=== PATIENT | female | born 1945 | race Caucasian/White ===

== ENCOUNTER 2017-08-29 17:00 | Observation (INO) | payer MEDICARE ==
[~2017-08-29] VITALS: Ht 165.1 cm; Wt 66.1 kg
[2017-08-29 17:21] VITALS: BP 103/53; PULSE 107; RESP 16; TEMP 99.1; O2SAT 97
[2017-08-29] MEDS ORDERED: CHEMOTHERAPY (18:13)
[2017-08-29] MEDS ORDERED: LOSA25TA PO (18:13)
[2017-08-29] MEDS ORDERED: LORA1TAB12 PO (18:13)
[2017-08-29] MEDS ORDERED: CARV3.12 PO (18:13)
--- NOTE | 2017-08-29 19:02 | PD ---
HPI Chief Complaint: GI Complaint Time Seen by Provider: 18:53 Travel History International Travel<30 days: No Contact w/Intl Traveler<30days: No Traveled to known affect area: No History of Present Illness HPI Is a 72-year-old woman who presents to the emergency room complaining of constipation. She is a history of metastatic breast cancer with recurrence and pulmonary metastasis. She is on chemotherapy. She was recently switched after a imaging studies show progression. She states that cancer is confined to the lungs with no evidence of head bone or back metastasis. She states 6 days ago they switched her chemotherapy and she's been having worsening constipation since that time. She's not had a bowel movement in the past several days. She feels an urge to have a bowel movement and has abdominal cramping. No vomiting. She also has some pain in both her feet has pain walking. She states she otherwise has been feeling okay. No other complaints. 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 SKIN: Focused skin assessment warm/dry. HEAD: Atraumatic. Normocephalic. CARDIOVASCULAR: Regular rate and rhythm. No murmur appreciated. RESPIRATORY: No accessory muscle use. Clear to auscultation. Breath sounds equal bilaterally. GASTROINTESTINAL: Abdomen is flat and soft. Moderate left-sided tenderness. No rebound or guarding. Rectal exam unremarkable with no evidence of fecal impaction on exam. MUSCULOSKELETAL: No obvious deformities. No clubbing. No cyanosis. No edema. NEUROLOGICAL: Awake and alert. No obvious cranial nerve deficits. Motor grossly within normal limits. Strength is full and equal bilateral lower extremity is. Sensation intact to light touch. Reflexes diminished a bilaterally in the patella. Downgoing Babinski. No clonus. Rectal tone normal. Normal speech. PSYCHIATRIC: Appropriate mood and affect; insight and judgment normal. Data Data Last Documented VS Vital Signs Date Time Temp Pulse Resp B/P (MAP) Pulse Ox O2 Delivery O2 Flow Rate FiO2 08/29/17 17:21 99.1 107 16 103/53 (70) 97 Orders Orders Complete Blood Count With Diff (08/29/17 18:53) Abdomen, Flat & Upright (08/29/17 ) Magnesium Citrate Liq (Citroma Liq) (08/29/17 20:15) Glycerin Adult Supp (Glycerin Adult Supp (08/29/17 20:15) Ondansetron Inj (Zofran Inj) (08/29/17 21:00) Ct Abd/Pel W/O Iv Contrast (08/29/17 ) Basic Metabolic Panel (Bmp) (08/29/17 22:22) Sodium Chlorid 0.9% 500 Ml Inj (Ns 500 M (08/29/17 22:30) Ondansetron Inj (Zofran Inj) (08/29/17 22:30) Morphine Inj (Morphine Inj) (08/29/17 23:30) Admit Order (Ed Use Only) (08/29/17 ) Labs Laboratory Tests Test 08/29/17 19:46 08/29/17 22:43 White Blood Count 2.0 TH/MM3 Red Blood Count 5.11 MIL/MM3 Hemoglobin 14.4 GM/DL Hematocrit 42.6 % Mean Corpuscular Volume 83.3 FL Mean Corpuscular Hemoglobin 28.2 PG Mean Corpuscular Hemoglobin Concent 33.8 % Red Cell Distribution Width 14.8 % Platelet Count 176 TH/MM3 Mean Platelet Volume 7.5 FL Neutrophils (%) (Auto) 43.8 % Lymphocytes (%) (Auto) 49.4 % Monocytes (%) (Auto) 2.2 % Eosinophils (%) (Auto) 1.0 % Basophils (%) (Auto) 3.6 % Neutrophils # (Auto) 0.9 TH/MM3 Lymphocytes # (Auto) 1.0 TH/MM3 Monocytes # (Auto) 0.0 TH/MM3 Eosinophils # (Auto) 0.0 TH/MM3 Basophils # (Auto) 0.1 TH/MM3 CBC Comment AUTO DIFF Differential Total Cells Counted 100 Neutrophils % (Manual) 29 % Band Neutrophils % 19 % Lymphocytes % 50 % Monocytes % 2 % Neutrophils # (Manual) 1.0 TH/MM3 Differential Comment FINAL DIFF MANUAL Platelet Estimate NORMAL Platelet Morphology Comment NORMAL Red Cell Morphology Comment NORMAL Blood Urea Nitrogen 20 MG/DL Creatinine 0.62 MG/DL Random Glucose 158 MG/DL Calcium Level 7.6 MG/DL Sodium Level 134 MEQ/L Potassium Level 3.6 MEQ/L Chloride Level 103 MEQ/L Carbon Dioxide Level 22.1 MEQ/L Anion Gap 9 MEQ/L Estimat Glomerular Filtration Rate 95 ML/MIN [facility] Medical Decision Making Medical Screen Exam Complete: Yes Emergency Medical Condition: Yes Interpretation(s) Flat and upright abdomen: Bowel gas patterns grossly within normal limits with moderate stool in the colon. CBC is remarkable for mild leukopenia. CT abdomen and pelvis: Multiple bilateral pulmonary masses characteristic of diffusely metastatic disease. We'll do find cystic mass in detail the pancreas measuring 3.4 x 2.6 cm. Nonspecific aching involving the wall of the transverse and descending colon. Can be seen colitis. Recommend correlation. Scattered diverticulosis of the descending colon and sigmoid colon without definite inflammatory changes. Differential Diagnosis Constipation, obstruction, neutropenia, spinal cord compression, other Narrative Course Medical decision making This 72-year-old woman presents to the emergency department with evidence of constipation. This is likely constipation but she doesn't have a clear precipitant. She is not taking a lot of pain medicines. Possibly related to her chemotherapy. She has no history of metastasis to her back or evidence of spinal cord compression. We'll check her white count prior to disimpaction here , we'll check x-ray. FINAL: CBC with abnormal changes secondary to chemotherapy as expected. Rectal exam is unremarkable. Chest x-rays unremarkable abdominal x-rays unremarkable. Patient developed vomiting following magnesium citrate. Decided to proceed with a CT scan which shows nonspecific thickening of the colon in the transverse and descending colon. There is no definite inflammatory changes. This neutropenic patient with abdominal pain, attributed to constipation but of no real clear etiology, with vomiting, I recommended we observe her overnight to make sure she is not developing some kind of abdominal processes being masked by her leukopenia. She was generally looks well. I don't think she needs empiric antibiotic coverage at this point. We'll continue MiraLAX, monitoring, admit for observation. Diagnosis Primary Impression: Abdominal pain Additional Impression: Constipation Admitting Information Admitting Physician Requests: Observation Edward Andrews MD Aug 29, 2017 19:02
[2017-08-29 19:49] LABS: AUTOMATED NEUTROPHIL # 0.9 TH/MM3 (1.8-7.7); BASOPHIL # 0.1 TH/MM3 (0-0.2); BASOPHIL % 3.6 % (0.0-2.0); HEMATOCRIT 42.6 % (35.0-46.0); HEMO FLAGS AUTO DIFF; LYMPH % 49.4 % (9.0-44.0); MEAN CELL VOLUME 83.3 FL (80.0-100.0); MEAN CORPUSCULAR HEMOGLOBIN 28.2 PG (27.0-34.0); MEAN CORPUSCULAR HGB CONC 33.8 % (32.0-36.0); MONO % 2.2 % (0.0-8.0); NEUT % 43.8 % (16.0-70.0); PLATELET COUNT 176 TH/MM3 (150-450); RED BLOOD COUNT 5.11 MIL/MM3 (4.00-5.30); RED CELL DISTRIBUTION WIDTH 14.8 % (11.6-17.2)
--- NOTE | 2017-08-29 19:57 | RADRPT ---
EXAM DATE/TIME: 08/29/2017 19:02 [facility] COMPARISON: No previous studies available for comparison. INDICATIONS : Constipation. MEDICAL HISTORY : None. SURGICAL HISTORY : None. ENCOUNTER: Initial ACUITY: 4 - 6 days PAIN SCORE: 10/10 LOCATION: all quadrants. FINDINGS: Supine and upright views of the abdomen were performed. The abdominal bowel gas pattern is a within normal limits. There is moderate stool in the colon.. There is an air fluid level noted at the right hepatic flexure in the colon.. No definite stones are seen overlying the kidneys.. The visualized l ower lungs are clear. No evidence of free intraperitoneal gas. The bony structures are intact. Surg ical clips in the right upper quadrant. CONCLUSION: Bowel gas pattern is grossly within normal limits with moderate stool in the colon. Porter Chu MD on August 29, 2017 at 19:54 Board Certified Radiologist. This report was verified electronically.
[2017-08-29] MEDS ORDERED: GLYCERIN ADULT 2 GM SUPP RECTAL ONE (20:15)
[2017-08-29] MEDS ORDERED: MAGNESIUM CITRATE SOLN 300 ML BTL PO ONE (20:15)
[2017-08-29 20:19] LABS: BANDS 19 % (0-6); POLYS (SEG NEUTROPHILS) 29 % (16-70); WBC DIFF SAMPLE 100
[2017-08-29 20:20] LABS: PLATELET ESTIMATE SMEAR NORMAL (NORMAL); PLATELET MORPHOLOGY NORMAL (NORMAL); SCAN/DIFF FINAL DIFF MANUAL
[2017-08-29] MEDS ORDERED: ONDANSETRON HCL 4 MG/2 ML VIAL IV PUSH ONE (21:00)
--- NOTE | 2017-08-29 22:01 | RADRPT ---
EXAM DATE/TIME: 08/29/2017 21:17 [facility] COMPARISON: No previous studies available for comparison. INDICATIONS : Abdominal pain and constipation. ORAL CONTRAST: No oral contrast ingested. RADIATION DOSE: 15.59 CTDIvol (mGy) MEDICAL HISTORY : Carcinoma, breast. Hypertension. SURGICAL HISTORY : Cholecystectomy. ENCOUNTER: Initial ACUITY: 4 - 6 days PAIN SCALE: 7/10 LOCATION: abdomen TECHNIQUE: Volumetric scanning of the abdomen and pelvis was performed. Using automated exposure control and ad justment of the mA and/or kV according to patient size, radiation dose was kept as low as reasonably achievable to obtain optimal diagnostic quality images. DICOM format image data is available electro nically for review and comparison. The lack of IV contrast limits the diagnosis for certain organ pa thology. FINDINGS: LOWER LUNGS: Multiple bilateral pulmonary masses measuring approximately 3 cm in diameter or larger. LIVER: Homogeneous density without lesion. There is no dilation of the biliary tree. No gallbladder, surgi mat removed. No ascites. SPLEEN: Normal size without lesion. PANCREAS: There is a cystic mass in the tail the pancreas measuring 3.4 x 2.6 cm. KIDNEYS: Normal in size and shape. There is no mass, stone, or hydronephrosis. ADRENAL GLANDS: Within normal limits. VASCULAR: There is no aortic aneurysm. BOWEL/MESENTERY: The bowel gas pattern is within normal limits. There is some nonspecific thickening involving the wal l of the transverse and descending colon. There are some scattered diverticula along the descending a nd sigmoid colon without definite inflammatory changes. There is stool throughout the colon. No free fluid or loculated fluid collections are seen. ABDOMINAL WALL: Within normal limits. RETROPERITONEUM: There is no lymphadenopathy. BLADDER: No wall thickening or mass. REPRODUCTIVE: Within normal limits. INGUINAL: There is no lymphadenopathy or hernia. MUSCULOSKELETAL: Within normal limits for patient age. CONCLUSION: 1. Multiple bilateral pulmonary masses characteristic for diffuse lung metastatic disease. Unknown et iology. 2. Well-defined cystic mass in the tail of the pancreas measuring 3.4 x 2.6 cm. 3. Nonspecific thickening involving the wall of the transverse and descending colon. This can be seen with colitis. Recommend correlation with patient's physical and clinical exam. 4. Scattered diverticulosis of the descending colon and sigmoid colon without definite inflammatory c hanges. Porter Chu MD on August 29, 2017 at 21:54 Board Certified Radiologist. This report was verified electronically.
[2017-08-29] MEDS ORDERED: SODIUM CHLORID 0.9% 500 ML INJ 500 ML IV ONE (22:30)
[2017-08-29] MEDS ORDERED: ONDANSETRON HCL 4 MG/2 ML VIAL IV ONE (22:30)
[2017-08-29 22:54] LABS: POTASSIUM 3.6 MEQ/L (3.5-5.1)
[2017-08-29 22:57] LABS: BICARBONATE 22.1 MEQ/L (21.0-32.0)
[2017-08-29] MEDS ORDERED: DIATRIZOATE MEGLUM/DIATRIZOATE SOD 120 ML BTL (for RAD DIAG) RECTAL ONE (23:28)
[2017-08-29] MEDS ORDERED: MORPHINE SULFATE 4 MG/ML INJ IV PUSH ONE (23:30)
[2017-08-29] MEDS ORDERED: SODIUM CHLORIDE 0.9% FLUSH 10 ML FLUSH IV FLUSH PRN (23:30)
[2017-08-29] MEDS ORDERED: NALOXONE HCL 0.4 MG/ML AMP IV PUSH PRN (23:30)
[2017-08-29] MEDS ORDERED: ONDANSETRON HCL 4 MG/2 ML VIAL IV PUSH PRN (23:30)
[2017-08-29] MEDS ORDERED: MORPHINE SULFATE 2 MG/ML INJ IV PUSH PRN (23:30)
[2017-08-29 23:32] VITALS: BP 125/46; PULSE 100; RESP 16; O2SAT 93
[2017-08-30 03:02] VITALS: BP 116/59; PULSE 92; RESP 16; O2SAT 96
[2017-08-30 06:11] LABS: AUTOMATED NEUTROPHIL # 0.8 TH/MM3 (1.8-7.7); EOSINOPHIL % 1.4 % (0.0-4.0); HEMATOCRIT 40.9 % (35.0-46.0); LYMPH % 44.2 % (9.0-44.0); LYMPHOCYTE # 0.8 TH/MM3 (1.0-4.8); MEAN CELL VOLUME 83.6 FL (80.0-100.0); MEAN CORPUSCULAR HEMOGLOBIN 28.8 PG (27.0-34.0); MEAN CORPUSCULAR HGB CONC 34.5 % (32.0-36.0); MONO % 3.3 % (0.0-8.0); NEUT % 49.1 % (16.0-70.0); PLATELET COUNT 190 TH/MM3 (150-450); RED CELL DISTRIBUTION WIDTH 14.8 % (11.6-17.2); WHITE BLOOD COUNT 1.7 TH/MM3 (4.0-11.0)
[2017-08-30 06:15] LABS: HEMO FLAGS AUTO DIFF
[2017-08-30 06:40] LABS: BANDS 13 % (0-6); BASOPHILS 1 % (0-2); EOSINOPHILS 3 % (0-4); NEUTROPHIL # MANUAL DIFF 0.8 TH/MM3 (1.8-7.7); POLYS (SEG NEUTROPHILS) 34 % (16-70); SCAN/DIFF FINAL DIFF MANUAL; WBC DIFF SAMPLE 100
[2017-08-30 06:45] LABS: POTASSIUM 4.1 MEQ/L (3.5-5.1)
[2017-08-30 06:57] VITALS: BP 117/59; PULSE 92; RESP 18; TEMP 97.7; O2SAT 97
[2017-08-30 07:21] LABS: CALCIUM-PROTEIN CORRECTED 7.3 MG/DL (8.5-10.1)
[2017-08-30] MEDS: SODIUM CHLORIDE 0.9% FLUSH 10 ML FLUSH IV FLUSH SCH ×2 (08:53→21:01)
[2017-08-30] MEDS ORDERED: LORazepam 1 MG TAB PO PRN (09:45)
[2017-08-30] MEDS ORDERED: SODIUM CHLOR 0.9% 1000 ML INJ 1,000 ML IV ONE (09:45)
--- NOTE | 2017-08-30 09:58 | HHI.HP ---
[facility] Service [facility] Primary Care Physician No Primary Care Physician Admission Diagnosis abdominal pain Diagnoses: (1) Abdominal pain Diagnosis: Principal (2) Constipation Diagnosis: Principal Chief Complaint: Constipation Travel History International Travel<30 Days: No Contact w/Intl Traveler <30 Da: No Traveled to Known Affected Are: No History of Present Illness Written by Milad Gagnon, acting as scribe for Dr. Batista on 08/30/17 at 09:44. 72-year-old rather unfortunate female with metastatic breast cancer who is undergoing chemotherapy that presented to hospital because constipation. Patient states that she was in normal state of health until last week when she had her chemotherapy changed by [facility] in [place]. Since then she's been having worsening abdominal symptoms to include abdominal pain, nausea, decreased appetite, not eating well, not drinking much, constipation. She usually has daily bowel movements. Her last bowel movement was Sunday. Patient has used Dulcolax, MiraLAX, prunes at home without any significant response. Patient states that she has been experiencing abdominal discomfort with generalized pain since Sunday. She denies any pain with eating. Patient can tolerate the discomfort any further so she had a friend drive her to the hospital for evaluation because constipation. Patient had workup done emergency department with x-rays and CTs which does show significant stool throughout the colon. Rectal exam was performed without any feces in the rectum. Patient was given magnesium citrate and she vomited that back up. The patient can tolerate treatment emergency department and is recommended that the patient be observed in the hospital for further recommendations Review of Systems Constitutional: COMPLAINS OF: Dizziness, Change in appetite Gastrointestinal: COMPLAINS OF: Abdominal pain, Constipation, Nausea, Vomiting Musculoskeletal: COMPLAINS OF: Muscle aches Except as stated in HPI: all other systems reviewed are Neg Past Family Social History Past Medical History Metastatic breast cancer Hypertension Past Surgical History Cholecystectomy Mediport placement Lung surgery Reported Medications Reported Meds & Active Scripts Active Reported Losartan (Losartan Potassium) 25 Mg Tab 25 Mg PO DAILY Lorazepam 1 Mg Tab 1 Mg PO DAILY PRN Carvedilol 3.125 Mg Tab 3.125 Mg PO BID [Chemotherapy] Allergies: Coded Allergies: No Known Allergies (Unverified , 08/29/17) Family History Reviewed is significant for mother at 94 with colon cancer. Father at age 76 from colon cancer. Sister at age 48 from breast cancer Social History Patient states that she smoked from 19 years old to 31 years old. Drinks alcohol rarely. Denies any illicit drug use Physical Exam Vital Signs Vital Signs Date Time Temp Pulse Resp B/P (MAP) Pulse Ox O2 Delivery O2 Flow Rate FiO2 08/30/17 06:57 97.7 92 18 117/59 (78) 97 Nasal Cannula 2.00 08/30/17 03:02 92 16 116/59 (78) 96 Nasal Cannula 2.00 08/29/17 23:38 16 08/29/17 23:32 100 16 125/46 (72) 93 Room Air 08/29/17 17:21 99.1 107 16 103/53 (70) 97 Physical Exam GENERAL: Well-developed, well-nourished, in no acute distress. alert and orientated HEENT: Head is normocephalic without any lesions or masses noted. Facial features are symmetric. Eyes: Pupils equal round reactive to light. Extraocular muscles are intact. Conjunctivae were clear. Oropharyngeal: Pharynx without any erythema edema. Tongue is midline without deviation. Buccal mucosa is dry without any masses or lesions NECK: Supple without any masses. Trachea midline no deviation. No JVD, no bruits are appreciated CARDIAC: Regular rhythm, regular rate. S1/S2 are heard. No murmurs gallops or rubs. LUNGS: Clear to auscultation bilaterally. No wheeze, rhonchi or rales. No use of accessory muscles on inspiration or expiration. ABDOMEN: Soft, generalized abdominal pain. Nondistended. Faint Bowel sounds heard in all 4 quadrants. No organomegaly or masses. Negative rebound, negative guarding EXTREMITIES: No edema, pulses are equal bilaterally. No cyanosis or clubbing NEUROLOGY: Mood and affect appear appropriate. Cranial nerves II through XII grossly intact. Muscle strength 5/5 in upper and lower extremities bilaterally. Deep tendon reflexes are 2+ in upper and lower extremities bilaterally. Laboratory Laboratory Tests Test 08/29/17 19:46 08/29/17 22:43 08/30/17 06:05 White Blood Count 2.0 1.7 Red Blood Count 5.11 4.90 Hemoglobin 14.4 14.1 Hematocrit 42.6 40.9 Mean Corpuscular Volume 83.3 83.6 Mean Corpuscular Hemoglobin 28.2 28.8 Mean Corpuscular Hemoglobin Concent 33.8 34.5 Red Cell Distribution Width 14.8 14.8 Platelet Count 176 190 Mean Platelet Volume 7.5 7.4 Neutrophils (%) (Auto) 43.8 49.1 Lymphocytes (%) (Auto) 49.4 44.2 Monocytes (%) (Auto) 2.2 3.3 Eosinophils (%) (Auto) 1.0 1.4 Basophils (%) (Auto) 3.6 2.0 Neutrophils # (Auto) 0.9 0.8 Lymphocytes # (Auto) 1.0 0.8 Monocytes # (Auto) 0.0 0.1 Eosinophils # (Auto) 0.0 0.0 Basophils # (Auto) 0.1 0.0 CBC Comment AUTO DIFF AUTO DIFF Differential Total Cells Counted 100 100 Neutrophils % (Manual) 29 34 Band Neutrophils % 19 13 Lymphocytes % 50 42 Monocytes % 2 7 Neutrophils # (Manual) 1.0 0.8 Differential Comment FINAL DIFF MANUAL FINAL DIFF MANUAL Platelet Estimate NORMAL Platelet Morphology Comment NORMAL Red Cell Morphology Comment NORMAL Blood Urea Nitrogen 20 23 Creatinine 0.62 0.65 Random Glucose 158 179 Calcium Level 7.6 7.1 Sodium Level 134 135 Potassium Level 3.6 4.1 Chloride Level 103 104 Carbon Dioxide Level 22.1 24.0 Anion Gap 9 7 Estimat Glomerular Filtration Rate 95 90 Eosinophils % 3 Basophils % 1 Total Protein 6.8 Protein Corrected Calcium 7.3 Result Diagram: 08/30/17 0605 08/30/17 0605 Imaging Last Impressions Abdomen/Pelvis CT 08/29/17 0000 Signed Impressions: Service Date/Time: Tuesday, August 29, 2017 21:17 - CONCLUSION: 1. Multiple bilateral pulmonary masses characteristic for diffuse lung metastatic disease. Unknown etiology. 2. Well-defined cystic mass in the tail of the pancreas measuring 3.4 x 2.6 cm. 3. Nonspecific thickening involving the wall of the transverse and descending colon. This can be seen with colitis. Recommend correlation with patient's physical and clinical exam. 4. Scattered diverticulosis of the descending colon and sigmoid colon without definite inflammatory changes. Porter Chu MD Abdomen X-Ray 08/29/17 0000 Signed Impressions: Service Date/Time: Tuesday, August 29, 2017 19:02 - CONCLUSION: Bowel gas pattern is grossly within normal limits with moderate stool in the colon. Porter Chu MD [place] VTE Risk Assessment Caprini VTE Risk Assessment: Mod/High Risk (score >= 2) Caprini Risk Assessment Model Point Value = 1 Point Value = 2 Point Value = 3 Point Value = 5 Age 41-60 Minor surgery BMI > 25 kg/m2 Swollen legs Varicose veins or History of unexplained or recurrent spontaneous Oral contraceptives or hormone replacement Sepsis (< 1 month) Serious lung disease, including pneumonia (< 1 month) Abnormal pulmonary function Acute myocardial infarction Congestive heart failure (< 1 month) History of inflammatory bowel disease Medical patient at bed rest Age 61-74 Arthroscopic surgery Major open surgery (> 45 min) Laparoscopic surgery (> 45 min) Malignancy Confined to bed (> 72 hours) Immobilizing plaster cast Central venous access Age >= 75 History of VTE Family history of VTE Factor V Leiden Prothrombin [id number] Lupus anticoagulant Anticardiolipin antibodies Elevated serum homocysteine Heparin-induced thrombocytopenia Other congenital or acquired thrombophilia Stroke (< 1 month) Elective arthroplasty Hip, pelvis, or leg fracture Acute spinal cord injury (< 1 month) Prophylaxis Regimen Total Risk Factor Score Risk Level Prophylaxis Regimen 0-1 Low Early ambulation 2 Moderate Order ONE of the following: *Sequential Compression Device (SCD) *Heparin 5000 units SQ BID 3-4 Higher Order ONE of the following medications: *Heparin 5000 units SQ TID *Enoxaparin/Lovenox 40 mg SQ daily (WT < 150 kg, CrCl > 30 mL/min) *Enoxaparin/Lovenox 30 mg SQ daily (WT < 150 kg, CrCl > 10-29 mL/min) *Enoxaparin/Lovenox 30 mg SQ BID (WT < 150 kg, CrCl > 30 mL/min) AND/OR *Sequential Compression Device (SCD) 5 or more Highest Order ONE of the following medications: *Heparin 5000 units SQ TID (Preferred with Epidurals) *Enoxaparin/Lovenox 40 mg SQ daily (WT < 150 kg, CrCl > 30 mL/min) *Enoxaparin/Lovenox 30 mg SQ daily (WT < 150 kg, CrCl > 10-29 mL/min) *Enoxaparin/Lovenox 30 mg SQ BID (WT < 150 kg, CrCl > 30 mL/min) AND *Sequential Compression Device (SCD) Assessment and Plan Assessment and Plan Constipation with presenting abdominal pain, decreased appetite, nausea Patient could not tolerate magnesium citrate in the emergency department Reviewed CT scan which does show significant stool throughout the colon, nonspecific thickening involving the wall of the transverse and descending colon. Pancreatic cystic lesion Check lipase level Will obtain Gastrografin enema for further evaluation and treatment Hypertension, blood pressure stable Continue home medications Metastatic breast cancer Patient will continue follow-up with [facility] Leukopenia with bandemia Secondary to chemotherapy Continue monitor Hyperglycemia Check hemoglobin A1c Monitor glucoses start Accu-Cheks with sliding scale insulin if needed Hypocalcemia Likely secondary to metastatic cancer Continue monitoring place as needed DVT prevention Subcutaneous Lovenox Problem Qualifiers (1) Constipation: Qualified Codes: K59.00 - Constipation, unspecified Milad Gagnon Aug 30, 2017 09:58
[2017-08-30 09:59] VITALS: BP 117/62; RESP 18; O2SAT 96
[2017-08-30] MEDS: CARVEDILOL 3.125 MG TAB PO SCH ×2 (10:27→21:01)
[2017-08-30] MEDS: LOSARTAN 25 MG TAB PO SCH (10:27)
[2017-08-30 12:42] VITALS: BP 111/46; PULSE 74; RESP 18; TEMP 97.9; O2SAT 96
[2017-08-30 14:56] VITALS: BP 120/60; PULSE 88; RESP 17; TEMP 97.7; O2SAT 98
--- NOTE | 2017-08-30 15:49 | RADRPT ---
EXAM DATE/TIME: 08/30/2017 12:20 [facility] COMPARISON: CT ABDOMEN & PELVIS W/O CONTRAST, August 29, 2017, 21:17. INDICATIONS : Constipation. FLUORO TIME: 2.3 minutes IMAGE COUNT: 15 CONTRAST: 1. [facility] MEDICAL HISTORY : Carcinoma, breast. Hypertension. SURGICAL HISTORY : Cholecystectomy. ENCOUNTER: Initial ACUITY: 3 days PAIN SCORE: 8/10 LOCATION: Abdomen. FINDINGS: A limited Gastrografin enema was performed for constipation. Initial biology laboratory assistant film demonstrates no bowel structure and or ileus. Mild degenerative changes and scoliosis of the lumbar spine are noted. Gastr ografin flows freely from the rectum to the cecum without obstruction. Post-evacuation film demonstra fela adequate decompression of the colon without persistent dilatation. CONCLUSION: Limited Gastrografin enema for constipation demonstrates no focal obstructive lesion. Robert Olivier MD on August 30, 2017 at 15:44 Board Certified Radiologist. This report was verified electronically.
--- NOTE | 2017-08-30 17:01 | HHI.DCPOC ---
Discharge Care Plan Diagnosis: (1) Constipation Goals to Promote Your Health * To prevent worsening of your condition and complications * To maintain your health at the optimal level Directions to Meet Your Goals Take your medications as prescribed Follow your dietary instruction Follow activity as directed Keep your appointments as scheduled Take your immunizations and boosters as scheduled If your symptoms worsen call your PCP, if no PCP go to Urgent Care Center or Emergency Room Smoking is Dangerous to Your Health. Avoid second hand smoke Call the 24-hour hour crisis hotline for domestic abuse at Milad Gagnon Aug 30, 2017 17:01
[2017-08-30 20:00] VITALS: BP 111/62; PULSE 95; RESP 20; TEMP 97.4; O2SAT 95
[2017-08-30 21:45] LABS: HEMOGLOBIN A1a 1.5 %; HEMOGLOBIN Ao 83.5 %; HEMOGLOBIN LA1C 2.4 %
[2017-08-31] VITALS: BP 100/64; PULSE 98; RESP 20; TEMP 98; O2SAT 98
[2017-08-31 04:00] VITALS: BP 108/56; PULSE 87; RESP 18; TEMP 98.1; O2SAT 97
[2017-08-31 08:00] VITALS: BP 105/62; PULSE 81; RESP 20; TEMP 97.2; O2SAT 97
[2017-08-31] MEDS: CARVEDILOL 3.125 MG TAB PO SCH (08:30)
[2017-08-31] MEDS: LOSARTAN 25 MG TAB PO SCH (08:30)
[2017-08-31] MEDS: SODIUM CHLORIDE 0.9% FLUSH 10 ML FLUSH IV FLUSH SCH (09:11)
[2017-08-31] MEDS ORDERED: MIRA3350 PO (10:19)
--- NOTE | 2017-08-31 10:20 | HHI.DS ---
Discharge Summary Admission Date Aug 29, 2017 at 23:27 Discharge Date: Aug 31, 2017 Admitting Diagnosis abdominal pain (1) Abdominal pain ICD Code: R10.9 - Unspecified abdominal pain Diagnosis: Principal Status: Acute (2) Constipation ICD Code: K59.00 - Constipation, unspecified Diagnosis: Principal Status: Acute Procedures gastrograffin enema Brief History - From Admission Written by Milad Gagnon, acting as scribe for Dr. Batista on 08/30/17 at 09:44. 72-year-old rather unfortunate female with metastatic breast cancer who is undergoing chemotherapy that presented to hospital because constipation. Patient states that she was in normal state of health until last week when she had her chemotherapy changed by [facility] in [place]. Since then she's been having worsening abdominal symptoms to include abdominal pain, nausea, decreased appetite, not eating well, not drinking much, constipation. She usually has daily bowel movements. Her last bowel movement was Sunday. Patient has used Dulcolax, MiraLAX, prunes at home without any significant response. Patient states that she has been experiencing abdominal discomfort with generalized pain since Sunday. She denies any pain with eating. Patient can tolerate the discomfort any further so she had a friend drive her to the hospital for evaluation because constipation. Patient had workup done emergency department with x-rays and CTs which does show significant stool throughout the colon. Rectal exam was performed without any feces in the rectum. Patient was given magnesium citrate and she vomited that back up. The patient can tolerate treatment emergency department and is recommended that the patient be observed in the hospital for further recommendations CBC/BMP: 08/30/17 0605 08/30/17 0605 Significant Findings Laboratory Tests Test 08/29/17 19:46 08/29/17 22:43 08/30/17 06:05 White Blood Count 2.0 TH/MM3 (4.0-11.0) 1.7 TH/MM3 (4.0-11.0) Lymphocytes (%) (Auto) 49.4 % (9.0-44.0) 44.2 % (9.0-44.0) Basophils (%) (Auto) 3.6 % (0.0-2.0) Neutrophils # (Auto) 0.9 TH/MM3 (1.8-7.7) 0.8 TH/MM3 (1.8-7.7) Band Neutrophils % 19 % (0-6) 13 % (0-6) Lymphocytes % 50 % (9-44) Neutrophils # (Manual) 1.0 TH/MM3 (1.8-7.7) 0.8 TH/MM3 (1.8-7.7) Blood Urea Nitrogen 20 MG/DL (7-18) 23 MG/DL (7-18) Random Glucose 158 MG/DL (74-106) 179 MG/DL (74-106) Calcium Level 7.6 MG/DL (8.5-10.1) 7.1 MG/DL (8.5-10.1) Sodium Level 134 MEQ/L (136-145) 135 MEQ/L (136-145) Lymphocytes # (Auto) 0.8 TH/MM3 (1.0-4.8) Hemoglobin A1c 6.3 % (4.3-6.0) Protein Corrected Calcium 7.3 MG/DL (8.5-10.1) PE at Discharge abd: soft, ND, NTD Hospital Course Patient was admitted for constipation not responding to by mouth medications. Underwent Gastrografin enema with successful evacuation of bowel. Tolerating by mouth intake well with no further nausea vomiting or GI symptoms. Patient has met maximum benefit from hospitalization and is clinically stable for discharge. Pt Condition on Discharge: Stable Discharge Disposition: Discharge Home Discharge Time: <= 30 minutes Discharge Instructions DIET: Follow Instructions for: As Tolerated, No Restrictions Activities you can perform: Weight Bearing as Jose Manuel Follow up Referrals: PCP Follow-up - 1 Week New Medications: Polyethylene Glycol 3350 Powder (Miralax Powder) 17 Gm Powd 17 GM PO DAILY for Constipation, #1 CAN 0 Refills Mix and dissolve one measuring cap-ful (17 grams) in water or juice. Continued Medications: Carvedilol (Carvedilol) 3.125 Mg Tab 3.125 MG PO BID, #60 TAB 0 Refills Lorazepam (Lorazepam) 1 Mg Tab 1 MG PO DAILY PRN for ANXIETY, TAB 0 Refills Losartan (Losartan) 25 Mg Tab 25 MG PO DAILY for Blood Pressure Management, #30 TAB 0 Refills [Chemotherapy] () Masoodi,Padilla Timothy MD Aug 31, 2017 10:20
[2017-08-31] MEDS ORDERED: SODIUM CHLORIDE 0.9% FLUSH 10 ML FLUSH IV FLUSH PRN (11:30)
== END 2017-08-31 12:40 | disposition home or self-care (01) ==
LOC: PHED 17:00 → PHEDA 23:27 → PHEDH 08-30 03:27 → PH3B 08-30 14:06
PROVIDERS: ADMIT Hospitalist; ATTEND Hospitalist
DX: R10.9 Unspecified abdominal pain (principal); K59.00 Constipation, unspecified; R11.0 Nausea; D72.825 Bandemia; C50.919 Malignant neoplasm of unspecified site of unspecified female breast; T45.1X5A Adverse effect of antineoplastic and immunosuppressive drugs, initial encounter; R73.9 Hyperglycemia, unspecified; I10 Essential (primary) hypertension; E83.51 Hypocalcemia; C78.00 Secondary malignant neoplasm of unspecified lung
CPT/HCPCS: 74020; 74176; 74270; 80048; 83036; 83690; 84155; 85007; 85027; 96361; 96374; 96375; 96376; 97110; 97116; 97162; 99285; G0378; G8987; G8988; J1642; J2270; J2405; J7030; J7040; Q9963

== ENCOUNTER 2018-01-07 13:12 | Observation (INO) | payer MEDICARE ==
[~2018-01-07] VITALS: Ht 165.1 cm; Wt 70.0 kg
[~2018-01-07 13:12] MED LIST: CARV3.12 PO; CHEMOTHERAPY; LORA1TAB12 PO; LOSA25TA PO; MIRA3350 PO
[2018-01-07 14:00] VITALS: BP 120/58; PULSE 69; RESP 16; TEMP 97.6; O2SAT 100
[2018-01-07] MEDS ORDERED: SODIUM CHLOR 0.9% 1000 ML INJ 1,000 ML IV ONE (14:14)
[2018-01-07] MEDS ORDERED: SODIUM CHLORIDE 0.9% FLUSH 10 ML FLUSH IVF PRN (14:15)
--- NOTE | 2018-01-07 14:22 | PD ---
HPI Chief Complaint: Dizziness Time Seen by Provider: 14:01 Travel History International Travel<30 days: No Contact w/Intl Traveler<30days: No Traveled to known affect area: No History of Present Illness HPI 72-year-old female with PMH of metastatic breast cancer presents to the ED for evaluation of dizziness with a few episodes of nonbilious vomiting this morning. Patient denies headache, blurred vision. States that the dizziness is worsened by turning her head certain ways. She denies chest pain, palpitations, shortness of breath, abdominal pain, nausea, dysuria, weakness of the extremities on presentation. He states that her last chemotherapy was 4 weeks ago with an oncologist in [place]. She states that her next chemotherapy is in one week. She has home health 2 days a week. Friend is at bedside and states that the patient seems more confused than normal. PCP Dr. Arnold. [facility] Past Medical History Blood Disorders: No Cancer: Yes (BREAST) Cardiovascular Problems: Yes Chemotherapy: Yes Endocrine: No Genitourinary: No Hypertension: Yes Psychiatric: No Reproductive: No Respiratory: No Tetanus Vaccination: Unknown Influenza Vaccination: No Past Surgical History Hysterectomy: Yes Other Surgery: Yes (PARTIAL MASTECTOMY) Social History Alcohol Use: Yes ([facility]) Tobacco Use: No Substance Use: No Allergies-Medications (Allergen,Severity, Reaction): Coded Allergies: No Known Allergies (Unverified Adverse Reaction, Unknown, 01/07/18) Reported Meds & Prescriptions Reported Meds & Active Scripts Active Miralax Powder (Polyethylene Glycol 3350 Powder) 17 Gm Powd 17 Gm PO DAILY Mix and dissolve one measuring cap-ful (17 grams) in water or juice. Reported Levothyroxine (Levothyroxine Sodium) 150 Mcg Tab 150 Mcg PO DAILY Losartan (Losartan Potassium) 25 Mg Tab 25 Mg PO DAILY Lorazepam 1 Mg Tab 1 Mg PO DAILY PRN Carvedilol 3.125 Mg Tab 3.125 Mg PO BID [Chemotherapy] Review of Systems Except as stated in HPI: all other systems reviewed are Neg Physical Exam Narrative GENERAL: Well-nourished, well-developed chronically ill appearing white female in no acute distress. PSYCHIATRIC: anxious. confused. SKIN: Focused skin assessment warm/dry. Jyyzen-s-Wrno in the left chest. Well healed, no signs of infection. HEAD: Normocephalic. EYES: No scleral icterus. No injection or drainage. PERRLA. EOMI. NECK: Supple, trachea midline. No JVD or lymphadenopathy. CARDIOVASCULAR: Regular rate and rhythm without murmurs, gallops, or rubs. RESPIRATORY: Breath sounds clear and equal bilaterally. No accessory muscle use. GASTROINTESTINAL: Abdomen soft, non-tender, nondistended. Bowel sounds MUSCULOSKELETAL: No cyanosis, or edema. NEUROLOGICAL: Awake and alert. Cranial nerves II through XII intact. Motor and sensory grossly within normal limits. Five out of 5 muscle strength in all muscle groups. Normal speech. BACK: Nontender without obvious deformity. No CVA tenderness. Data Data Last Documented VS Vital Signs Date Time Temp Pulse Resp B/P (MAP) Pulse Ox O2 Delivery O2 Flow Rate FiO2 01/07/18 16:43 61 25 122/60 (80) 99 Room Air 01/07/18 14:00 97.6 Orders Orders Electrocardiogram (01/07/18 14:14) Complete Blood Count With Diff (01/07/18 14:14) Comprehensive Metabolic Panel (01/07/18 14:14) Troponin I (01/07/18 14:14) Act Partial Throm Time (Ptt) (01/07/18 14:14) Prothrombin Time / Inr (Pt) (01/07/18 14:14) Urinalysis - C+S If Indicated (01/07/18 14:14) Chest, Single Ap (01/07/18 14:14) Ct Brain W/O Iv Contrast(Rout) (01/07/18 14:14) Ecg Monitoring (01/07/18 14:14) Iv Access Insert/Monitor (01/07/18 14:14) Oximetry (01/07/18 14:14) Sodium Chloride 0.9% Flush (Ns Flush) (01/07/18 14:15) Sodium Chlor 0.9% 1000 Ml Inj (Ns 1000 M (01/07/18 14:14) Ondansetron Inj (Zofran Inj) (01/07/18 14:30) Meclizine (Antivert) (01/07/18 14:45) Admit Order (Ed Use Only) (01/07/18 17:38) Labs Laboratory Tests Test 01/07/18 14:30 01/07/18 16:10 White Blood Count 6.8 TH/MM3 Red Blood Count 3.98 MIL/MM3 Hemoglobin 12.7 GM/DL Hematocrit 34.7 % Mean Corpuscular Volume 87.2 FL Mean Corpuscular Hemoglobin 31.9 PG Mean Corpuscular Hemoglobin Concent 36.6 % Red Cell Distribution Width 14.8 % Platelet Count 297 TH/MM3 Mean Platelet Volume 7.3 FL Neutrophils (%) (Auto) 56.9 % Lymphocytes (%) (Auto) 32.3 % Monocytes (%) (Auto) 8.8 % Eosinophils (%) (Auto) 1.0 % Basophils (%) (Auto) 1.0 % Neutrophils # (Auto) 3.9 TH/MM3 Lymphocytes # (Auto) 2.2 TH/MM3 Monocytes # (Auto) 0.6 TH/MM3 Eosinophils # (Auto) 0.1 TH/MM3 Basophils # (Auto) 0.1 TH/MM3 CBC Comment AUTO DIFF Differential Comment AUTO DIFF CONFIRMED Prothrombin Time 10.3 SEC Prothromb Time International Ratio 1.0 RATIO Activated Partial Thromboplast Time 22.3 SEC Blood Urea Nitrogen 13 MG/DL Creatinine 0.60 MG/DL Random Glucose 96 MG/DL Total Protein 7.0 GM/DL Albumin 3.6 GM/DL Calcium Level 9.2 MG/DL Alkaline Phosphatase 65 U/L Aspartate Amino Transf (AST/SGOT) 24 U/L Alanine Aminotransferase (ALT/SGPT) 21 U/L Total Bilirubin 0.3 MG/DL Sodium Level 140 MEQ/L Potassium Level 3.7 MEQ/L Chloride Level 107 MEQ/L Carbon Dioxide Level 26.1 MEQ/L Anion Gap 7 MEQ/L Estimat Glomerular Filtration Rate 99 ML/MIN Troponin I LESS THAN 0.02 NG/ML Urine Color YELLOW Urine Turbidity CLEAR Urine pH 6.5 Urine Specific [place] 1.016 Urine Protein NEG mg/dL Urine Glucose (UA) NEG mg/dL Urine Ketones NEG mg/dL Urine Occult Blood NEG Urine Nitrite NEG Urine Bilirubin NEG Urine Urobilinogen LESS THAN 2.0 MG/DL Urine Leukocyte Esterase MOD Urine RBC 1 /hpf Urine WBC 2 /hpf Urine Squamous Epithelial Cells <1 /hpf Urine Mucus FEW /lpf Microscopic Urinalysis Comment CULT NOT INDICATED MDM Medical Decision Making Medical Screen Exam Complete: Yes Emergency Medical Condition: Yes Differential Diagnosis Metabolic derangement versus metastatic brain cancer versus UTI versus ICH versus vertigo versus other Narrative Course 72-year-old female with PMH of metastatic breast cancer presents to the ED for evaluation of dizziness with a few episodes of nonbilious vomiting this morning Dizziness is worsened by turning her head. She denies vision changes, chest pain, palpitations, shortness of breath, abdominal pain, nausea, dysuria, weakness of the extremities on presentation. Last chemotherapy was 4 weeks ago with an oncologist in [place]. She has home health 2 days a week. Friend is at bedside and states that the patient seems more confused than normal. PCP Dr. Arnold. Patient's afebrile, BP 120/58 on presentation. Physical exam reveals a chronically ill-appearing white female in no acute distress. She is very hard of hearing and I'm unsure if her confusion is secondary to this or if she is generally confused. IV was established. Patient was administered 1 L normal saline, 4 mg Zofran, 25 mg meclizine. EKG rate 60, sinus rhythm. IN interval 184, QRS 108, QTC 390. Left axis deviation. Q-wave in V3/V4. No acute ST changes. Reviewed by Dr. Burnett. CXR: Multiple bilateral lung masses, largest measuring 4.6 cm Cardiac enzymes negative 1. CBC: No leukocytosis or anemia. INR 1.0. Chemistry unremarkable. UA: No culture indicated CT brain: Senescent changes without acute intracranial abnormality per radiology read. On recheck the patient endorses improvement of her dizziness. Her friend at bedside is very concerned, states that the patient does not seem like herself and states that she has no family to care for her at home. I'm in agreement with friend at bedside, patient does seem rather confused and don't think she is a safe discharge. Patient is agreeable to admission. I discussed the patient with Dr. Lu who agrees to accept her to the medicine service for overnight observation. Please see medicine notes for disposition. Melodie Palomo Jan 07, 2018 14:22
[2018-01-07] MEDS ORDERED: ONDANSETRON HCL 4 MG/2 ML VIAL IV PUSH ONE ×2 (14:30→19:00)
[2018-01-07] MEDS ORDERED: MECLIZINE HCL 25 MG TAB PO ONE (14:45)
[2018-01-07 14:46] LABS: AUTOMATED NEUTROPHIL # 3.9 TH/MM3 (1.8-7.7); BASOPHIL # 0.1 TH/MM3 (0-0.2); EOSINOPHIL # 0.1 TH/MM3 (0-0.4); HEMATOCRIT 34.7 % (35.0-46.0); HEMOGLOBIN 12.7 GM/DL (11.6-15.3); LYMPH % 32.3 % (9.0-44.0); LYMPHOCYTE # 2.2 TH/MM3 (1.0-4.8); MEAN CELL VOLUME 87.2 FL (80.0-100.0); MEAN CORPUSCULAR HEMOGLOBIN 31.9 PG (27.0-34.0); MEAN PLATELET VOLUME 7.3 FL (7.0-11.0); MONO % 8.8 % (0.0-8.0); MONOCYTE # 0.6 TH/MM3 (0-0.9); NEUT % 56.9 % (16.0-70.0); PLATELET COUNT 297 TH/MM3 (150-450); RED BLOOD COUNT 3.98 MIL/MM3 (4.00-5.30); RED CELL DISTRIBUTION WIDTH 14.8 % (11.6-17.2); WHITE BLOOD COUNT 6.8 TH/MM3 (4.0-11.0)
--- NOTE | 2018-01-07 14:58 | RADRPT ---
EXAM DATE/TIME: 01/07/2018 14:32 [facility] COMPARISON: CT ABDOMEN & PELVIS W/O CONTRAST, August 29, 2017, 21:17. INDICATIONS : Palpitations, short of breath, weakness MEDICAL HISTORY : Carcinoma, breast. Hypertension SURGICAL HISTORY : Cholecystectomy. infusaport ENCOUNTER: Initial ACUITY: 1 day PAIN SCORE: 0/10 LOCATION: Bilateral chest FINDINGS: Abnormal appearance of the lungs with multiple varying size masses, the largest in the lateral left m idlung measuring 4.6 cm. Additional masslike densities is seen in the medial left lower lung measuri ng 2.5 and 2.4 cm. There is a mass in the central right lung measuring 3.9 cm. Ppfsiv-w-Gjys cathet er tip at the cavoatrial junction. The heart is normal in size. Both hemidiaphragms are well deline ated. CONCLUSION: Multiple bilateral lung masses, the largest measures 4.6 cm. Nikolay Pace MD on January 07, 2018 at 14:54 Board Certified Radiologist. This report was verified electronically.
[2018-01-07 15:01] LABS: ALBUMIN 3.6 GM/DL (3.4-5.0); ALT (GPT) 21 U/L (10-53); AST (GOT) 24 U/L (15-37); BICARBONATE 26.1 MEQ/L (21.0-32.0); BLOOD UREA NITROGEN 13 MG/DL (7-18); CALCIUM 9.2 MG/DL (8.5-10.1); CHLORIDE 107 MEQ/L (98-107); GLOMERULAR FILTRATION RATE 99 ML/MIN (>89); GLUCOSE,RANDOM 96 MG/DL (74-106); SODIUM (NA) 140 MEQ/L (136-145)
[2018-01-07 15:03] LABS: MEAN CORPUSCULAR HGB CONC 36.6 % (32.0-36.0)
[2018-01-07] MEDS ORDERED: LEVO150T7 PO (15:04)
[2018-01-07 15:05] LABS: ALKALINE PHOSPHATASE 65 U/L (45-117); TOTAL BILIRUBIN ADULT 0.3 MG/DL (0.2-1.0); TROPONIN I LESS THAN 0.02 NG/ML (0.02-0.05)
--- NOTE | 2018-01-07 15:23 | RADRPT ---
EXAM DATE/TIME: 01/07/2018 15:09 [facility] COMPARISON: No previous studies available for comparison. INDICATIONS : Vomiting, dizziness RADIATION DOSE: 56.35 CTDIvol (mGy) MEDICAL HISTORY : Cardiovascular disease. Hypertension. Carcinoma, breast. SURGICAL HISTORY : Hysterectomy. ENCOUNTER: Initial ACUITY: 1 day PAIN SCALE: 0/10 LOCATION: cranial TECHNIQUE: Multiple contiguous axial images were obtained of the head. Using automated exposure control and adj ustment of the mA and/or kV according to patient size, radiation dose was kept as low as reasonably a chievable to obtain optimal diagnostic quality images. DICOM format image data is available electro nically for review and comparison. FINDINGS: CEREBRUM: Moderate cerebral volume loss. The ventricles are normal for age. No evidence of midline shift, mass lesion, hemorrhage or acute infarction. No extra-axial fluid collections are seen. POSTERIOR FOSSA: The cerebellum and brainstem are intact. The 4th ventricle is midline. The cerebellopontine angle i s unremarkable. EXTRACRANIAL: The visualized portion of the orbits is intact. SKULL: The calvaria is intact. No evidence of skull fracture. CONCLUSION: 1. Senescent changes without acute intracranial abnormality. Koko Sanz MD on January 07, 2018 at 15:19 Board Certified Radiologist. This report was verified electronically.
[2018-01-07 15:27] LABS: PROTHROMBIN TIME - PATIENT 10.3 SEC (9.8-11.6)
[2018-01-07 16:38] LABS: BILIRUBIN, URINE NEG (NEG); BLOOD, URINE NEG (NEG); GLUCOSE,URINE NEG (NEG); KETONE, URINE NEG (NEG); MUCUS URINE FEW /lpf (OCC); NITRITE,URINE NEG (NEG); PH, URINE 6.5 (5.0-8.5); SQUAMOUS EPITHELIAL CELL URINE <1 /hpf (0-5); URINE COLOR YELLOW (YELLW/STRAW); URINE LEUKOCYTE ESTERASE MOD (NEG)
[2018-01-07 16:43] VITALS: BP 122/60; PULSE 61; RESP 25; O2SAT 99
[2018-01-07] MEDS ORDERED: SODIUM CHLORIDE 0.9% FLUSH 10 ML FLUSH IV FLUSH PRN (17:45)
[2018-01-07] MEDS ORDERED: NALOXONE HCL 0.4 MG/ML AMP IV PUSH PRN (17:45)
--- NOTE | 2018-01-07 18:02 | HHI.HP ---
[facility] Primary Care Physician Ritchie Harris MD Admission Diagnosis Confusion, dizziness, N/V Diagnoses: Travel History International Travel<30 Days: No Contact w/Intl Traveler <30 Da: No Traveled to Known Affected Are: No History of Present Illness History from patient, ER nurse practitioner, and review medical records. Patient reported that yesterday, she started feeling dizzy, with swaying of gait to her right side. She denies any ear pains or discharge. Denies any trouble swallowing food. Also reports of associated nausea and vomiting 2. No blood in her vomitus. Denies any diarrhea or abdominal pain. Denies seeing any black color stool or red color stool. Denies any urinary symptoms. Patient also denies any focal weakness in her arms or legs. No fever. No neck rigidity. No photophobia. States that she was at [facility] about 4 weeks ago and had chemotherapy for her breast cancer. She states that she was throwing up a lot then. However it resolved. It only came back on yesterday. Reports of history of metastatic breast CA for which chemotherapy last dose was 4 weeks ago. Not an radiation currently. Reports of right breast CA about 14 years ago for which she had surgical resection and radiation therapy. She usually follows up at the [facility] in [place] for her cancer treatment. Review of Systems Except as stated in HPI: all other systems reviewed are Neg Past Family Social History Past Medical History takes echo for chemo side effects- all wnl heart valve problem but pt is not sure hypothyrodism right breast cancer - 14yrs ago, s/p radiation, s/p surgical resection metastastic breast CA currently in treatment with chemo at [facility] in [place] Past Surgical History right breast cancer removal left mediport left rotator cuff sx hysterectomy Allergies: Coded Allergies: No Known Allergies (Unverified Allergy, Unknown, 01/07/18) Family History mother- at age 94 yo Social History quit smoking at age of 31yo no etoh abuse or drug abuse lives by herself, still drives, has a neighbor who helps has a daughter and son in [facility] Physical Exam Vital Signs Vital Signs Date Time Temp Pulse Resp B/P (MAP) Pulse Ox O2 Delivery O2 Flow Rate FiO2 01/07/18 16:43 61 25 122/60 (80) 99 Room Air 01/07/18 14:37 Room Air 01/07/18 14:00 97.6 69 16 120/58 (78) 100 Physical Exam GENERAL: This is a well-nourished, well-developed patient, in no apparent distress. SKIN: No rashes, ecchymoses or lesions. Cool and dry. HEAD: Atraumatic. Normocephalic. No temporal or scalp tenderness. EYES: No scleral icterus. No injection or drainage. ENT: Nose without bleeding, purulent drainage or septal hematoma. Airway patent. NECK: Trachea midline. No JVD. Supple, nontender, no meningeal signs. CARDIOVASCULAR: Regular rate and rhythm without murmurs, gallops, or rubs. RESPIRATORY: Clear to auscultation. Breath sounds equal bilaterally. No wheezes , rales, or rhonchi. GASTROINTESTINAL: Abdomen soft, non-tender, nondistended. No guarding. MUSCULOSKELETAL: Extremities without clubbing, cyanosis, or edema. No calf tenderness. NEUROLOGICAL: Awake and alert. Cranial nerves II through XII intact. Motor and sensory grossly within normal limits. Normal speech. However does seem to have trouble finding words while talking. More of expressive aphasia. Laboratory Laboratory Tests Test 01/07/18 14:30 01/07/18 16:10 White Blood Count 6.8 Red Blood Count 3.98 Hemoglobin 12.7 Hematocrit 34.7 Mean Corpuscular Volume 87.2 Mean Corpuscular Hemoglobin 31.9 Mean Corpuscular Hemoglobin Concent 36.6 Red Cell Distribution Width 14.8 Platelet Count 297 Mean Platelet Volume 7.3 Neutrophils (%) (Auto) 56.9 Lymphocytes (%) (Auto) 32.3 Monocytes (%) (Auto) 8.8 Eosinophils (%) (Auto) 1.0 Basophils (%) (Auto) 1.0 Neutrophils # (Auto) 3.9 Lymphocytes # (Auto) 2.2 Monocytes # (Auto) 0.6 Eosinophils # (Auto) 0.1 Basophils # (Auto) 0.1 CBC Comment AUTO DIFF Differential Comment AUTO DIFF CONFIRMED Prothrombin Time 10.3 Prothromb Time International Ratio 1.0 Activated Partial Thromboplast Time 22.3 Blood Urea Nitrogen 13 Creatinine 0.60 Random Glucose 96 Total Protein 7.0 Albumin 3.6 Calcium Level 9.2 Alkaline Phosphatase 65 Aspartate Amino Transf (AST/SGOT) 24 Alanine Aminotransferase (ALT/SGPT) 21 Total Bilirubin 0.3 Sodium Level 140 Potassium Level 3.7 Chloride Level 107 Carbon Dioxide Level 26.1 Anion Gap 7 Estimat Glomerular Filtration Rate 99 Troponin I LESS THAN 0.02 Urine Color YELLOW Urine Turbidity CLEAR Urine pH 6.5 Urine Specific [place] 1.016 Urine Protein NEG Urine Glucose (UA) NEG Urine Ketones NEG Urine Occult Blood NEG Urine Nitrite NEG Urine Bilirubin NEG Urine Urobilinogen LESS THAN 2.0 Urine Leukocyte Esterase MOD Urine RBC 1 Urine WBC 2 Urine Squamous Epithelial Cells <1 Urine Mucus FEW Microscopic Urinalysis Comment CULT NOT INDICATED Result Diagram: 01/07/18 1430 01/07/18 1430 Imaging Last [address] 01/07/181413 Signed Impressions: Service Date/Time: Sunday, January 07, 2018 15:09 - CONCLUSION: 1. Senescent changes without acute intracranial abnormality. Koko Sanz MD Chest X-Ray 01/07/181413 Signed Impressions: Service Date/Time: Sunday, January 07, 2018 14:32 - CONCLUSION: Multiple bilateral lung masses, the largest measures 4.6 cm. MD Jass Manzo VTE Risk Assessment Jass VTE Risk Assessment: Mod/High Risk (score >= 2) Caprini Risk Assessment Model Point Value = 1 Point Value = 2 Point Value = 3 Point Value = 5 Age 41-60 Minor surgery BMI > 25 kg/m2 Swollen legs Varicose veins or History of unexplained or recurrent spontaneous Oral contraceptives or hormone replacement Sepsis (< 1 month) Serious lung disease, including pneumonia (< 1 month) Abnormal pulmonary function Acute myocardial infarction Congestive heart failure (< 1 month) History of inflammatory bowel disease Medical patient at bed rest Age 61-74 Arthroscopic surgery Major open surgery (> 45 min) Laparoscopic surgery (> 45 min) Malignancy Confined to bed (> 72 hours) Immobilizing plaster cast Central venous access Age >= 75 History of VTE Family history of VTE Factor V Leiden Prothrombin 51328H Lupus anticoagulant Anticardiolipin antibodies Elevated serum homocysteine Heparin-induced thrombocytopenia Other congenital or acquired thrombophilia Stroke (< 1 month) Elective arthroplasty Hip, pelvis, or leg fracture Acute spinal cord injury (< 1 month) Prophylaxis Regimen Total Risk Factor Score Risk Level Prophylaxis Regimen 0-1 Low Early ambulation 2 Moderate Order ONE of the following: *Sequential Compression Device (SCD) *Heparin 5000 units SQ BID 3-4 Higher Order ONE of the following medications: *Heparin 5000 units SQ TID *Enoxaparin/Lovenox 40 mg SQ daily (WT < 150 kg, CrCl > 30 mL/min) *Enoxaparin/Lovenox 30 mg SQ daily (WT < 150 kg, CrCl > 10-29 mL/min) *Enoxaparin/Lovenox 30 mg SQ BID (WT < 150 kg, CrCl > 30 mL/min) AND/OR *Sequential Compression Device (SCD) 5 or more Highest Order ONE of the following medications: *Heparin 5000 units SQ TID (Preferred with Epidurals) *Enoxaparin/Lovenox 40 mg SQ daily (WT < 150 kg, CrCl > 30 mL/min) *Enoxaparin/Lovenox 30 mg SQ daily (WT < 150 kg, CrCl > 10-29 mL/min) *Enoxaparin/Lovenox 30 mg SQ BID (WT < 150 kg, CrCl > 30 mL/min) AND *Sequential Compression Device (SCD) Assessment and Plan Assessment and Plan Impression: dizziness / unsteady gait in a pt with metastatic CA- Possible brain mets vs CVA vs posterior circulation insufficiency Altered mental status. To me, patient looks more of having trouble with speech. Again, rule out intracranial etiology. heart valve problem but pt is not sure . Had recent echo about 2 weeks ago. Stated she was also receiving echocardiogram for chemotherapy side effects right breast cancer - 14yrs ago, s/p radiation, s/p surgical resection metastastic breast CA currently in treatment with chemo at [facility] in [place]- reports this has spread to all over her chest and lungs. Hypothyroidism Plan: Head CT personally reviewed. No evidence of acute bleed/ mass/infarct. We'll obtain MRI of the brain and MRA of the brain tonight. Check for orthostatics. Hold antihypertensives. PT evaluation. Will obtain echo report from [facility]. Also obtain records of oncology notes, H&P, discharge summary. Carotid sono. Resume home dose of Synthroid. DVT prophylaxis with SCD. Discussed Condition With patient, ER CLINICAL ENGINEERING MANAGER, nursing staff Joycelyn Lu MD Jan 07, 2018 18:02
[2018-01-07] MEDS ORDERED: LORazepam 1 MG TAB PO PRN (18:15)
--- NOTE | 2018-01-07 19:35 | RADRPT ---
EXAM DATE/TIME: 01/07/2018 18:47 [facility] COMPARISON: No previous studies available for comparison. INDICATIONS : Dizziness. MEDICAL HISTORY : Hypertension. Cardiac disorders. Breast cancer. SURGICAL HISTORY : Hysterectomy. Rotator cuff surgery. Partial masectomy. ENCOUNTER: Initial ACUITY: 1 day PAIN SCORE: 2/10 LOCATION: Bilateral neck PEAK SYSTOLIC VELOCITIES (cm/sec): ICA/CCA RATIO: Right: 1.0 Left: 1.3 ICA: Right: 75.4 Left: 82.3 CCA: Right: 72.1 Left: 64.4 ECA: Right: 50.3 Left: 58.9 VERTEBRAL: Right: 51.2 antegrade Left: 60.3 antegrade Elevated flow velocities and ICA/CCA ratios have been found to correlate with increased degrees of vessel stenosis, calculated as percentage of diameter relative to a normal segment of distal ICA/CCA FINDINGS: RIGHT CAROTID: No significant stenosis is visualized. The waveforms are within normal limits. LEFT CAROTID: No significant stenosis is visualized. The waveforms are within normal limits. VERTEBRAL ARTERIES: Antegrade flow is seen in both vertebral arteries. MISCELLANEOUS: None. CONCLUSION: No evidence of flow-limiting carotid stenosis. Saad Moreno MD on January 07, 2018 at 19:31 Board Certified Radiologist. This report was verified electronically.
--- NOTE | 2018-01-07 20:21 | RADRPT ---
EXAM DATE/TIME: 01/07/2018 19:29 [facility] COMPARISON: No previous studies available for comparison. INDICATIONS : CVA. History of breast cancer and lung cancer, rule out mets to the brain. MEDICAL HISTORY : Carcinoma, lung. Carcinoma, breast. SURGICAL HISTORY : Mastectomy, right. Hysterectomy. Port placed. ENCOUNTER: Initial ACUITY: 1 day PAIN SCORE: 3/10 LOCATION: Bilateral cranial TECHNIQUE: Multiplanar, multisequence MRI of the brain was performed without contrast. FINDINGS: CEREBRUM: The ventricles are normal for age. No evidence of midline shift, mass lesion, hemorrhage or acute in farction. No extraaxial fluid collections are seen. The pituitary gland and suprasellar cistern are normal in configuration. WHITE MATTER: No significant signal abnormalities are seen in the white matter. POSTERIOR FOSSA: The cerebellum and brainstem are intact. The 4th ventricle is midline. The cerebellopontine angle is unremarkable. The cerebellar tonsils are normal in position. DIFFUSION IMAGING: No focal areas of restricted diffusion are seen. No evidence of acute infarction. EXTRACRANIAL: The visualized portions of the orbits and paranasal sinuses are unremarkable. CONCLUSION: Normal examination. Saad Moreno MD on January 07, 2018 at 20:19 Board Certified Radiologist. This report was verified electronically.
[2018-01-07] MEDS: SODIUM CHLORIDE 0.9% FLUSH 10 ML FLUSH IV FLUSH SCH (20:28)
--- NOTE | 2018-01-07 20:29 | RADRPT ---
EXAM DATE/TIME: 01/07/2018 19:29 [facility] COMPARISON: No previous studies available for comparison. INDICATIONS : Dizziness, rule out vertebrobasilar insuffancy, dizziness, altered mental status. MEDICAL HISTORY : Carcinoma, breast. Carcinoma, lung. SURGICAL HISTORY : Hysterectomy. ENCOUNTER: Initial ACUITY: 1 day PAIN SCORE: 3/10 LOCATION: Bilateral cranial Please note a normal MRA of the brain does not entirely exclude the possibility of a small aneurysm, nor the possibility of distal intracranial vessel disease. TECHNIQUE: 3D time of flight MRA was performed. Source images, multiplanar STS MIP, and 3D volume MIP reconstru ctions were reviewed. FINDINGS: There is excellent visualization of the major intracranial arteries out to the second-order branch ve ssels. There is no evidence for aneurysm, vessel truncation or stenosis, and no evidence for vascula r malformation. CONCLUSION: Normal examination. Saad Moreno MD on January 07, 2018 at 20:26 Board Certified Radiologist. This report was verified electronically.
[2018-01-07 20:59] VITALS: BP 159/68; PULSE 76; RESP 16; TEMP 98.6; O2SAT 97
[2018-01-08] VITALS (9 sets, daily range): BP systolic 115–146; BP diastolic 55–69; PULSE 63–83; RESP 16–20; TEMP 97.8–98.7; O2SAT 96–98
[2018-01-08] MEDS: LEVOTHYROXINE SODIUM 150 MCG TAB PO SCH (06:27)
[2018-01-08] MEDS ORDERED: ACETAMINOPHEN 325 MG TAB PO PRN (06:30)
[2018-01-08 06:33] LABS: AUTOMATED NEUTROPHIL # 3.4 TH/MM3 (1.8-7.7); BASOPHIL # 0.1 TH/MM3 (0-0.2); BASOPHIL % 1.2 % (0.0-2.0); EOSINOPHIL # 0.1 TH/MM3 (0-0.4); HEMATOCRIT 33.5 % (35.0-46.0); HEMOGLOBIN 11.4 GM/DL (11.6-15.3); LYMPH % 28.8 % (9.0-44.0); LYMPHOCYTE # 1.6 TH/MM3 (1.0-4.8); MEAN CELL VOLUME 87.9 FL (80.0-100.0); MEAN CORPUSCULAR HGB CONC 34.1 % (32.0-36.0); MEAN PLATELET VOLUME 7.2 FL (7.0-11.0); MONO % 9.3 % (0.0-8.0); MONOCYTE # 0.5 TH/MM3 (0-0.9); NEUT % 58.7 % (16.0-70.0); PLATELET COUNT 246 TH/MM3 (150-450); RED BLOOD COUNT 3.81 MIL/MM3 (4.00-5.30); RED CELL DISTRIBUTION WIDTH 15.2 % (11.6-17.2); WHITE BLOOD COUNT 5.7 TH/MM3 (4.0-11.0)
[2018-01-08 07:25] LABS: BICARBONATE 27.1 MEQ/L (21.0-32.0); CREATININE 0.61 MG/DL (0.50-1.00)
[2018-01-08] MEDS: SODIUM CHLORIDE 0.9% FLUSH 10 ML FLUSH IV FLUSH SCH ×2 (09:38→21:04)
--- NOTE | 2018-01-08 11:13 | HHI.PR ---
Subjective Remarks Follow up dizziness. The patient states that she is still dizzy. No lightheadedness/near-syncope. No chest pain, dyspnea, nausea, vomiting. Symptoms are worse when she looks down. Objective Vitals Vital Signs Date Time Temp Pulse Resp B/P (MAP) Pulse Ox O2 Delivery O2 Flow Rate FiO2 01/08/18 08:28 98.1 64 18 124/59 (80) 96 01/08/18 04:12 83 01/08/18 02:30 98.4 72 18 115/55 (75) 97 125/61 (82) 129/69 (89) 01/07/18 20:59 98.6 76 16 159/68 (98) 97 01/07/18 19:01 (80) 01/07/18 16:43 61 25 122/60 (80) 99 Room Air 01/07/18 14:37 Room Air 01/07/18 14:00 97.6 69 16 120/58 (78) 100 I/O 01/07/18 01/07/18 01/07/18 01/08/18 01/08/18 01/08/18 07:00 15:00 23:00 07:00 15:00 23:00 Intake Total 1000 ml Balance 1000 ml Intake IV Total 1000 ml # Voids 0 # Bowel Movements 0 Result Diagram: 01/08/18 0552 01/08/18 0552 Imaging Last Impressions Head Magnetic Resonance Angiography 01/07/181747 Signed Impressions: Service Date/Time: Sunday, January 07, 2018 19:29 - CONCLUSION: Normal examination. Saad Moreno MD Brain MRI 01/07/181747 Signed Impressions: Service Date/Time: Sunday, January 07, 2018 19:29 - CONCLUSION: Normal examination. Saad Moreno MD Head CT 01/07/181413 Signed Impressions: Service Date/Time: Sunday, January 07, 2018 15:09 - CONCLUSION: 1. Senescent changes without acute intracranial abnormality. Koko Sanz MD Chest X-Ray 01/07/181413 Signed Impressions: Service Date/Time: Sunday, January 07, 2018 14:32 - CONCLUSION: Multiple bilateral lung masses, the largest measures 4.6 cm. Nikolay Pace MD Carotid Artery Ultrasound 01/07/18 0000 Signed Impressions: Service Date/Time: Sunday, January 07, 2018 18:47 - CONCLUSION: No evidence of flow-limiting carotid stenosis. Saad Moreno MD Objective Remarks General: Elderly female in no acute distress. Alopecia. Heart: Regular rate and rhythm. No murmur. Lungs: Clear to auscultation bilaterally. No wheezes, rales, or rhonchi. Breathing is nonlabored. Abdomen: Soft, nontender, nondistended. Extremities: No lower extremity edema. Psych: Alert and oriented. Procedures None Urinary Catheter: No Vascular Central Line Catheter: No A/P Assessment and Plan 1. Dizziness: Uncertain etiology. Imaging is negative, including brain MRI/MRA. Consult neurology. Continue PT. 2. Dysphasia: Patient has trouble finding words at times. 3. Breast cancer: Most recent chemotherapy was ~4 weeks ago. Sees oncology in [facility] and at [place]. CXR shows lung masses, which the patient states that she was aware of. 4. Hypothyroidism: Continue Synthroid. 5. DVT prophylaxis: SCDs, Lovenox. Discharge Planning Possible discharge home soon pending neurology clearance and clinical improvement. Will need home health PT. Patient lives alone. Milad Yanez MD Jan 08, 2018 11:12
[2018-01-08] MEDS: ENOXAPARIN SODIUM 40 MG/0.4 ML SYRINGE SQ SCH (14:16)
--- NOTE | 2018-01-08 17:52 | PD.CONS ---
History of Present Illness Service Neurology Consult Requested By Medicine Reason for Consult Dizziness Primary Care Physician Ritchie Harris MD History of Present Illness History of Present Illness 72-year-old female admitted to the hospital with acute dizziness and weakness. States that she was at [facility] about 4 weeks ago and had chemotherapy for her breast cancer. Patient has history of metastatic breast cancer for which chemotherapy last dose was reportedly 4 weeks ago. Reports of right breast CA about 14 years ago for which she had surgical resection and radiation therapy. She does report having whole brain radiation in the past, but denies any notable brain metastases. On my evaluation the patient has varying degrees of expressive aphasia, however she is able to convey her thoughts in general. She denies any headache or visual disturbances at this time, but continues to have some lightheadedness. Past Family Social History Past Medical History hypothyrodism right breast cancer - 14yrs ago, s/p radiation, s/p surgical resection metastastic breast CA currently in treatment with chemo at [place] in [place] Past Surgical History right breast cancer removal left mediport left rotator cuff sx hysterectomy Allergies: Coded Allergies: No Known Allergies Family History mother- at age 94 Social History quit smoking at age of 31yo no etoh abuse or drug abuse lives by herself, still drives, has a neighbor who helps Imaging Last [address] 01/07/18 141 Signed Impressions: Service Date/Time: Sunday, January 07, 2018 15:09 - CONCLUSION: 1. Senescent changes without acute intracranial abnormality. Koko Sanz MD Chest X-Ray 01/07/181413 Signed Impressions: Service Date/Time: Sunday, January 07, 2018 14:32 - CONCLUSION: Multiple bilateral lung masses, the largest measures 4.6 cm. Nikolay Pace MD (Otoniel Downing) Review of Systems Constitutional: Negative except HPI Eye: Negative Except HPI ENMT: Negative except HPI Respiratory: Negative except HPI Cardiovascular: Negative except HPI Gastrointestinal: Negative except HPI Claudy/Lymph: Negative except HPI Musculoskeletal: Negative except HPI Neurologic: Negative except HPI Psychiatric: Negative except HPI All other ROS: ROS reviewed as documented in chart (Otoniel Downing) Past Family Social History Allergies: Coded Allergies: No Known Allergies (Unverified Allergy, Unknown, 01/07/18) Active Ordered Medications Current Medications Medications (Trade) Dose Ordered Sig/Vianey Route Start Time Stop Time Status Last Admin (NS Flush) 2 ml UNSCH PRN IV FLUSH 01/07/18 17:45 (NS Flush) 2 ml BID IV FLUSH 01/07/18 21:00 01/08/18 09:38 (Narcan Inj) 0.4 mg UNSCH PRN IV PUSH 01/07/18 17:45 (Synthroid) 150 mcg DAILY@0600 PO 01/08/18 06:00 01/08/18 06:27 (Ativan) 1 mg DAILY PRN PO 01/07/18 18:15 (Tylenol) 650 mg Q4H PRN PO 01/08/18 06:30 01/08/18 06:27 (Lovenox Inj) 40 mg Q24H SQ 01/08/18 13:00 01/08/18 14:16 (Otoniel Downing) Exam I&O / VS Vital Signs Date Time Temp Pulse Resp B/P (MAP) Pulse Ox O2 Delivery O2 Flow Rate FiO2 01/08/18 16:00 97.9 69 18 122/60 (80) 97 01/08/18 11:51 97.8 67 20 132/63 (86) 98 130/62 (84) 136/63 (87) 01/08/18 08:28 98.1 64 18 124/59 (80) 96 01/08/18 04:12 83 01/08/18 02:30 98.4 72 18 115/55 (75) 97 125/61 (82) 129/69 (89) 01/07/18 20:59 98.6 76 16 159/68 (98) 97 01/07/18 19:01 (80) General: No acute distress Eye: PERRL, EOMI Respiratory: Non-labored respirations, BS equal, Symmetrical expansion Cardiology: Normal rate Neurologic: Alert, Oriented, CN II-XII intact, Normal DTR's Psychiatric: Cooperative, Appropriate mood & affect Exam Comments Dysarthric speech with varying degrees of expressive aphasia, follows commands, no ptosis or nystagmus, OU 2-3 mm, strength full and equal throughout the extremities, no drift, no tremor, sensory intact to pin, finger-nose and heel sampson coordination intact bilaterally, plantar flexor, negative head thrust (Otoniel Downing) Review/Management Diagnosis/Plan: (1) Encephalopathy ICD Codes: G93.40 - Encephalopathy, unspecified Status: Acute Plan: Patient has some dysarthria, MRIs are normal Check EEG (2) Dizziness and giddiness ICD Codes: R42 - Dizziness and giddiness Status: Acute Plan: PT evaluation MRI and MR angiogram of the head negative Carotid ultrasound unremarkable Check labs (3) Breast cancer ICD Codes: C50.919 - Malignant neoplasm of unspecified site of unspecified female breast Status: Chronic Plan: Patient with history of metastatic breast cancer Reports having prophylactic whole brain radiation in the past Follows at [facility] (Otoniel Downing) Daily Summary seen and examined. jewel PA. agree with above. + head thrust test to the rt suggestive of peripheral vestibulopathy causing vertigo. also with hx of brain xrt? this ould be contributing to her cognitive symptoms. follow exam (Tone Healy MD) Otoniel Downing Jan 08, 2018 17:52 Tone Healy MD Jan 09, 2018 20:13
--- NOTE | 2018-01-08 18:27 | EKG ---
Date Performed: 01/07/2018 Time Performed: 14:55:50 PTAGE: 72 years EKG: Sinus rhythm MARKED LEFT AXIS DEVIATION MODERATE VOLTAGE CRITERIA FOR LVH, CONSIDER NORMAL VARIANT POSSIBLE ANTER IOR MYOCARDIAL INFARCTION ABNORMAL ECG NO PREVIOUS TRACING DOCTOR: Meeta Mccracken Interpretating Date/Time 01/08/2018 18:21:24
[2018-01-08 22:06] LABS: C-REACTIVE PROTEIN LESS THAN 0.29 MG/DL (0.00-0.30)
[2018-01-09 01:19] VITALS: BP 124/62; PULSE 69; RESP 14; TEMP 98.6; O2SAT 96
[2018-01-09 02:13] VITALS: PULSE 68
[2018-01-09 05:13] VITALS: BP 128/62; PULSE 74; RESP 16; TEMP 97.6; O2SAT 98
[2018-01-09] MEDS: LEVOTHYROXINE SODIUM 150 MCG TAB PO SCH (05:31)
[2018-01-09] MEDS: SODIUM CHLORIDE 0.9% FLUSH 10 ML FLUSH IV FLUSH SCH ×2 (09:00→20:48)
--- NOTE | 2018-01-09 09:27 | HHI.PR ---
Review/Management Diagnosis/Plan: (1) Dizziness and giddiness ICD Codes: R42 - Dizziness and giddiness Status: Acute Plan: looks well probable bpv. had + head thrust test yesterday suggestive of peripheral vertigo MRI and MR angiogram of the head negative Carotid ultrasound unremarkable recs meclizine prn outpatient vestibular therapy pt apprehensive about going home. lives alone. [place]. maybe short course of rehab/snf follow exam can follow up with us outpatient as well (2) Encephalopathy ICD Codes: G93.40 - Encephalopathy, unspecified Status: Acute Plan: improved states she has had some trouble with speech x months possibly related to wbxrt (3) Breast cancer ICD Codes: C50.919 - Malignant neoplasm of unspecified site of unspecified female breast Status: Chronic Plan: Patient with history of metastatic breast cancer Reports having prophylactic whole brain radiation in the past Follows at [facility] Subjective Subjective Comments No acute events reported experiences a spinning sensation with head movement. better when head is straight. has had this off/on x months no head trauma. no fever. dajuan po No headache No chest pain No dyspnea Active Medications Current Medications Medications (Trade) Dose Ordered Sig/Vianey Route Start Time Stop Time Status Last Admin (NS Flush) 2 ml UNSCH PRN IV FLUSH 01/07/18 17:45 (NS Flush) 2 ml BID IV FLUSH 01/07/18 21:00 01/08/18 21:04 (Narcan Inj) 0.4 mg UNSCH PRN IV PUSH 01/07/18 17:45 (Synthroid) 150 mcg DAILY@0600 PO 01/08/18 06:00 01/09/18 05:31 (Ativan) 1 mg DAILY PRN PO 01/07/18 18:15 (Tylenol) 650 mg Q4H PRN PO 01/08/18 06:30 01/08/18 06:27 (Lovenox Inj) 40 mg Q24H SQ 01/08/18 13:00 01/08/18 14:16 Allergies Allergies Coded Allergies No Known Allergies (Unverified Allergy, Unknown, 01/07/18) Review of Systems Constitutional: Negative except HPI Eye: Negative Except HPI ENMT: Negative except HPI Respiratory: Negative except HPI Cardiovascular: Negative except HPI Gastrointestinal: Negative except HPI Claudy/Lymph: Negative except HPI Musculoskeletal: Negative except HPI Neurologic: Negative except HPI Psychiatric: Negative except HPI All other ROS: ROS reviewed as documented in chart Exam I&O / VS Vital Signs Date Time Temp Pulse Resp B/P (MAP) Pulse Ox O2 Delivery O2 Flow Rate FiO2 01/09/18 05:13 97.6 74 16 128/62 (84) 98 01/09/18 02:13 68 01/09/18 01:19 98.6 69 14 124/62 (82) 96 01/08/18 19:46 98.7 76 16 130/61 (84) 96 146/63 (90) 133/63 (86) 01/08/18 18:30 63 01/08/18 16:00 97.9 69 18 122/60 (80) 97 01/08/18 12:00 63 01/08/18 11:51 97.8 67 20 132/63 (86) 98 130/62 (84) 136/63 (87) General: No acute distress Eye: PERRL, EOMI Respiratory: Non-labored respirations, BS equal, Symmetrical expansion Cardiology: Normal rate Neurologic: Alert, Oriented, CN II-XII intact, Normal DTR's Psychiatric: Cooperative, Appropriate mood & affect Exam Comments ox 3, no aphasia, follows, articulate, apprehensive about going home, eomi, vff , no focal weakness Objective Micro and Labs Laboratory Tests Test 01/08/18 21:14 01/09/18 06:39 Erythrocyte Sedimentation Rate 35 Tone Healy MD Jan 09, 2018 09:27
[2018-01-09 11:56] VITALS: BP_SYST 143; BP_SYST 150; BP_SYST 155; BP_DIAS 65; BP_DIAS 67; BP_DIAS 68; PULSE 67; RESP 18; TEMP 97.5; O2SAT 96
--- NOTE | 2018-01-09 12:00 | HHI.PR ---
Subjective Remarks Follow up dizziness. Patients states that she feels better today. Dizziness has improved. Denies chest pain, dyspnea. Wants to go home. Objective Vitals Vital Signs Date Time Temp Pulse Resp B/P (MAP) Pulse Ox O2 Delivery O2 Flow Rate FiO2 01/09/18 05:13 97.6 74 16 128/62 (84) 98 01/09/18 02:13 68 01/09/18 01:19 98.6 69 14 124/62 (82) 96 01/08/18 19:46 98.7 76 16 130/61 (84) 96 146/63 (90) 133/63 (86) 01/08/18 18:30 63 01/08/18 16:00 97.9 69 18 122/60 (80) 97 01/08/18 12:00 63 I/O 01/08/18 01/08/18 01/08/18 01/09/18 01/09/18 01/09/18 07:00 15:00 23:00 07:00 15:00 23:00 # Voids 0 3 # Bowel Movements 0 Result Diagram: 01/08/18 0552 01/08/18 0552 Imaging Last Impressions Head Magnetic Resonance Angiography 01/07/181747 Signed Impressions: Service Date/Time: Sunday, January 07, 2018 19:29 - CONCLUSION: Normal examination. Saad Moreno MD Brain MRI 01/07/181747 Signed Impressions: Service Date/Time: Sunday, January 07, 2018 19:29 - CONCLUSION: Normal examination. Saad Moreno MD Head CT 01/07/18 141 Signed Impressions: Service Date/Time: Sunday, January 07, 2018 15:09 - CONCLUSION: 1. Senescent changes without acute intracranial abnormality. Koko Sanz MD Chest X-Ray 01/07/181413 Signed Impressions: Service Date/Time: Sunday, January 07, 2018 14:32 - CONCLUSION: Multiple bilateral lung masses, the largest measures 4.6 cm. Nikolay Pace MD Carotid Artery Ultrasound 01/07/18 0000 Signed Impressions: Service Date/Time: Sunday, January 07, 2018 18:47 - CONCLUSION: No evidence of flow-limiting carotid stenosis. Saad Moreno MD Objective Remarks General: Elderly female in no acute distress. Alopecia. Heart: Regular rate and rhythm. No murmur. Lungs: Clear to auscultation bilaterally. No wheezes, rales, or rhonchi. Breathing is nonlabored. Abdomen: Soft, nontender, nondistended. Extremities: No lower extremity edema. Psych: Alert and oriented. Procedures None Urinary Catheter: No Vascular Central Line Catheter: No A/P Assessment and Plan 1. Dizziness: Uncertain etiology. Imaging is negative, including brain MRI/MRA. Improving. Appreciate neurology recommendations. Continue PT. 2. Dysphasia: Patient has trouble finding words at times. 3. Breast cancer: Most recent chemotherapy was ~4 weeks ago. Sees oncology in [facility] and at [place]. CXR shows lung masses, which the patient states that she was aware of. 4. Hypothyroidism: Continue Synthroid. 5. DVT prophylaxis: SCDs, Lovenox. Discharge Planning PT and neurology are recommending SNF/rehab. Milad Yanez MD Jan 09, 2018 12:00
[2018-01-09] MEDS: ENOXAPARIN SODIUM 40 MG/0.4 ML SYRINGE SQ SCH (13:00)
--- NOTE | 2018-01-09 15:56 | HHI.FF ---
Face to Face Verification Diagnosis: (1) Dizziness and giddiness (2) Breast cancer Physical Therapy Order: Evaluate and Treat Home Health Nursing Order: Nursing assessment with vital signs I have seen patient Lolita Montez on 01/09/18. My clinical findings support the need for the requested home health care services because: High risk of falls I certify that my clinical findings support that this patient is homebound because: Unsteady gait/balance Milad Yanez MD Jan 09, 2018 15:56
[2018-01-09 16:26] VITALS: BP 145/64; PULSE 75; RESP 18; TEMP 97.9; O2SAT 96
--- NOTE | 2018-01-09 19:17 | MG ---
cc: AYESHA WU M.D. Lab No: Date: 01/09/2018 Age: Sex: F Race: REQUESTING PHYSICIAN TOMMIE Collado INDICATION An EEG was obtained on this 72-year-old patient being evaluated for depression, lung mass, etc. DESCRIPTION The patient is described as awake. The EEG shows low and mid amplitude alpha rhythms posteriorly. There are beta rhythms frontally. The background is reactive. There is bilateral driving response. Intermittently there is some right hemisphere slower rhythms posteriorly that seem to be quite consistent. INTERPRETATION The right hemisphere slowing suggests a right hemisphere structural abnormality but there are no epileptiform features present. Otherwise the EEG study is normal. ] Ayesha Wu MD OFC/KK /6:41 PM /6:52 PM
[2018-01-09 20:19] VITALS: BP 132/70; PULSE 76; RESP 16; TEMP 98.5; O2SAT 98
[2018-01-09] MEDS ORDERED: MECLIZINE HCL 25 MG TAB PO PRN (21:00)
[2018-01-10 01:08] VITALS: BP 135/65; PULSE 82; RESP 14; TEMP 97.8; O2SAT 96
[2018-01-10 05:08] VITALS: PULSE 68; PULSE 96
[2018-01-10] MEDS: LEVOTHYROXINE SODIUM 150 MCG TAB PO SCH (06:26)
[2018-01-10 07:35] VITALS: PULSE 73
[2018-01-10 08:35] VITALS: BP_SYST 120; BP_SYST 130; BP_DIAS 65; BP_DIAS 70; BP_DIAS 71; PULSE 71; RESP 18; TEMP 97.9; O2SAT 95
[2018-01-10] MEDS: SODIUM CHLORIDE 0.9% FLUSH 10 ML FLUSH IV FLUSH SCH (09:02)
--- NOTE | 2018-01-10 09:36 | HHI.PR ---
Review/Management Diagnosis/Plan: (1) Dizziness and giddiness ICD Codes: R42 - Dizziness and giddiness Status: Acute Plan: looks well probable bpv. had + head thrust test suggestive of peripheral vertigo MRI and MR angiogram of the head negative Carotid ultrasound unremarkable recs feeling better. she feels good about going home. has a water taxi driver and others that help her d/c planning home vs rehab today from neuro can follow up with us outpatient as well (2) Encephalopathy ICD Codes: G93.40 - Encephalopathy, unspecified Status: Acute Plan: improved states she has had some trouble with speech x months possibly related to wbxrt (3) Breast cancer ICD Codes: C50.919 - Malignant neoplasm of unspecified site of unspecified female breast Status: Chronic Plan: Patient with history of metastatic breast cancer Reports having prophylactic whole brain radiation in the past Follows at [facility] Subjective Subjective Comments No acute events reported no dizziness. No headache No chest pain No dyspnea Active Medications Current Medications Medications (Trade) Dose Ordered Sig/Vianey Route Start Time Stop Time Status Last Admin (NS Flush) 2 ml UNSCH PRN IV FLUSH 01/07/18 17:45 (NS Flush) 2 ml BID IV FLUSH 01/07/18 21:00 01/10/18 09:02 (Narcan Inj) 0.4 mg UNSCH PRN IV PUSH 01/07/18 17:45 (Synthroid) 150 mcg DAILY@0600 PO 01/08/18 06:00 01/10/18 06:26 (Ativan) 1 mg DAILY PRN PO 01/07/18 18:15 01/09/18 20:48 (Tylenol) 650 mg Q4H PRN PO 01/08/18 06:30 01/08/18 06:27 (Lovenox Inj) 40 mg Q24H SQ 01/08/18 13:00 01/08/18 14:16 (Antivert) 25 mg Q8HR PRN PO 01/09/18 21:00 Allergies Allergies Coded Allergies No Known Allergies (Unverified Allergy, Unknown, 01/07/18) Review of Systems Constitutional: Negative except HPI Eye: Negative Except HPI ENMT: Negative except HPI Respiratory: Negative except HPI Cardiovascular: Negative except HPI Gastrointestinal: Negative except HPI Claudy/Lymph: Negative except HPI Musculoskeletal: Negative except HPI Neurologic: Negative except HPI Psychiatric: Negative except HPI All other ROS: ROS reviewed as documented in chart Exam I&O / VS Vital Signs Date Time Temp Pulse Resp B/P (MAP) Pulse Ox O2 Delivery O2 Flow Rate FiO2 01/10/18 08:35 97.9 71 18 120/71 (87) 95 130/65 (86) 120/70 (87) 01/10/18 07:35 73 01/10/18 05:08 68 01/10/18 01:08 97.8 82 14 135/65 (88) 96 01/09/18 20:19 98.5 76 16 132/70 (90) 98 01/09/18 16:26 97.9 75 18 145/64 (91) 96 01/09/18 11:56 97.5 67 18 150/67 (94) 96 155/68 (97) 143/65 (91) General: No acute distress Eye: PERRL, EOMI Respiratory: Non-labored respirations, BS equal, Symmetrical expansion Cardiology: Normal rate Neurologic: Alert, Oriented, CN II-XII intact, Normal DTR's Psychiatric: Cooperative, Appropriate mood & affect Exam Comments ox 3, dysfluency and mild dysnomia, pres Trump, follows, articulate, eomi, vff, no focal weakness Tone Healy MD Jan 10, 2018 09:36
[2018-01-10] MEDS ORDERED: MECL1TAB42 PO (10:27)
--- NOTE | 2018-01-10 10:27 | HHI.DCPOC ---
Discharge Care Plan Diagnosis: (1) Dizziness and giddiness (2) Breast cancer Goals to Promote Your Health * To prevent worsening of your condition and complications * To maintain your health at the optimal level Directions to Meet Your Goals Take your medications as prescribed Follow your dietary instruction Follow activity as directed Keep your appointments as scheduled Take your immunizations and boosters as scheduled If your symptoms worsen call your PCP, if no PCP go to Urgent Care Center or Emergency Room Smoking is Dangerous to Your Health. Avoid second hand smoke Call the 24-hour hour crisis hotline for domestic abuse at Milad Yanez MD Jan 10, 2018 10:27
--- NOTE | 2018-01-10 10:31 | HHI.DS ---
Discharge Summary Admission Date Jan 07, 2018 at 17:39 Discharge Date: Jan 10, 2018 Admitting Diagnosis Confusion, dizziness, N/V (1) Breast cancer ICD Code: C50.919 - Malignant neoplasm of unspecified site of unspecified female breast Status: Chronic (2) Dizziness and giddiness ICD Code: R42 - Dizziness and giddiness Status: Acute Procedures None Brief History - From Admission History from patient, ER nurse practitioner, and review medical records. Patient reported that yesterday, she started feeling dizzy, with swaying of gait to her right side. She denies any ear pains or discharge. Denies any trouble swallowing food. Also reports of associated nausea and vomiting 2. No blood in her vomitus. Denies any diarrhea or abdominal pain. Denies seeing any black color stool or red color stool. Denies any urinary symptoms. Patient also denies any focal weakness in her arms or legs. No fever. No neck rigidity. No photophobia. States that she was at [place] about 4 weeks ago and had chemotherapy for her breast cancer. She states that she was throwing up a lot then. However it resolved. It only came back on yesterday. Reports of history of metastatic breast CA for which chemotherapy last dose was 4 weeks ago. Not an radiation currently. Reports of right breast CA about 14 years ago for which she had surgical resection and radiation therapy. She usually follows up at the [facility] in [place] for her cancer treatment. CBC/BMP: 01/08/18 0552 01/08/18 0552 Significant Findings Laboratory Tests Test 01/07/18 14:30 01/07/18 16:10 01/08/18 05:52 01/08/18 21:14 Red Blood Count 3.98 MIL/MM3 (4.00-5.30) 3.81 MIL/MM3 (4.00-5.30) Hematocrit 34.7 % (35.0-46.0) 33.5 % (35.0-46.0) Mean Corpuscular Hemoglobin Concent 36.6 % (32.0-36.0) Monocytes (%) (Auto) 8.8 % (0.0-8.0) 9.3 % (0.0-8.0) Activated Partial Thromboplast Time 22.3 SEC (24.3-30.1) Troponin I LESS THAN 0.02 NG/ML Urine Leukocyte Esterase MOD (NEG) Urine Mucus FEW /lpf (OCC) Hemoglobin 11.4 GM/DL (11.6-15.3) Calcium Level 8.0 MG/DL (8.5-10.1) Chloride Level 110 MEQ/L (98-107) Erythrocyte Sedimentation Rate 35 mm/hr (0-30) Test 01/09/18 06:39 Imaging Last Impressions Head Magnetic Resonance Angiography [id number]/[id number] Signed Impressions: Service Date/Time: Sunday, January 07, 2018 19:29 - CONCLUSION: Normal examination. Saad Moreno MD Brain MRI [id number]/[id number] Signed Impressions: Service Date/Time: Sunday, January 07, 2018 19:29 - CONCLUSION: Normal examination. Saad Moreno MD Head CT [id number]/07/[id number] Signed Impressions: Service Date/Time: Sunday, January 07, 2018 15:09 - CONCLUSION: 1. Senescent changes without acute intracranial abnormality. Koko Sanz MD Chest X-Ray [id number] Signed Impressions: Service Date/Time: Sunday, January 07, 2018 14:32 - CONCLUSION: Multiple bilateral lung masses, the largest measures 4.6 cm. Nikolay Pace MD Carotid Artery Ultrasound 01/07/18 0000 Signed Impressions: Service Date/Time: Sunday, January 07, 2018 18:47 - CONCLUSION: No evidence of flow-limiting carotid stenosis. Saad Moreno MD PE at Discharge General: Elderly female in no acute distress. Alopecia. Heart: Regular rate and rhythm. No murmur. Lungs: Clear to auscultation bilaterally. No wheezes, rales, or rhonchi. Breathing is nonlabored. Abdomen: Soft, nontender, nondistended. Extremities: No lower extremity edema. Psych: Alert and oriented. Pt update on day of discharge The patient has no complaints at this time. She wants to go home. She has been ambulating in the halls without difficulty. No dizziness/lightheadedness. Hospital Course The patient was admitted to the observation unit for further evaluation of dizziness and unsteady gait. Neurology was consulted. Symptoms are felt to be secondary to vertigo. Physical therapy evaluated the patient and initially recommended SNF/rehab. The patient's ability to ambulate improved and her dizziness resolved. She was cleared for discharge by neurology. She was felt to be stable for discharge home with home health care. Pt Condition on Discharge: Stable Discharge Disposition: Disch w/ Home Health Serv Discharge Time: <= 30 minutes Discharge Instructions DIET: Follow Instructions for: Heart Healthy Diet Activities you can perform: Regular-No Restrictions Follow up Referrals: Neurology - 2 Weeks with Tone Healy MD Oncology PCP Follow-up with Ritchie Harris Md New Medications: Meclizine HCl (Meclizine 25) 25 Mg Tab 25 MG PO Q8HR PRN for dizziness, #30 TAB 0 Refills Continued Medications: Levothyroxine (Levothyroxine) 150 Mcg Tab 150 MCG PO DAILY for Thyroid, #30 TAB 0 Refills Lorazepam (Lorazepam) 1 Mg Tab 1 MG PO DAILY PRN for ANXIETY, TAB 0 Refills Polyethylene Glycol 3350 Powder (Miralax Powder) 17 Gm Powd 17 GM PO DAILY for Constipation, #1 CAN 0 Refills Mix and dissolve one measuring cap-ful (17 grams) in water or juice. [Chemotherapy] () Discontinued Medications: Carvedilol (Carvedilol) 3.125 Mg Tab 3.125 MG PO BID, #60 TAB 0 Refills Losartan (Losartan) 25 Mg Tab 25 MG PO DAILY for Blood Pressure Management, #30 TAB 0 Refills Milad Yanez MD Jan 10, 2018 10:31
[2018-01-10 11:40] VITALS: BP 126/51; PULSE 82; RESP 18; TEMP 97.4; O2SAT 95
[2018-01-10] MEDS ORDERED: SODIUM CHLORIDE 0.9% FLUSH 10 ML FLUSH IVF PRN (12:30)
[2018-01-12 09:58] LABS: METHYLMALONIC ACID 0.09 nmol/mL (<=0.40)
== END 2018-01-10 13:52 | disposition home or self-care (01) ==
LOC: NEPE 13:12 → NEDA 17:39 → NEPGCP 19:18 → NEDA 21:16 → NEPGCP 21:18
PROVIDERS: ADMIT Family Medicine; ATTEND Family Medicine
DX: R42 Dizziness and giddiness (principal); R11.2 Nausea with vomiting, unspecified; G93.40 Encephalopathy, unspecified; R53.1 Weakness; R47.02 Dysphasia; R94.31 Abnormal electrocardiogram [ECG] [EKG]; R00.2 Palpitations; R06.02 Shortness of breath; R41.82 Altered mental status, unspecified; R47.01 Aphasia; R26.81 Unsteadiness on feet; R11.10 Vomiting, unspecified; R91.8 Other nonspecific abnormal finding of lung field; I10 Essential (primary) hypertension; E03.9 Hypothyroidism, unspecified; C50.919 Malignant neoplasm of unspecified site of unspecified female breast; H91.90 Unspecified hearing loss, unspecified ear; Z92.3 Personal history of irradiation; Z92.21 Personal history of antineoplastic chemotherapy; Z87.891 Personal history of nicotine dependence; Z79.899 Other long term (current) drug therapy; Z85.118 Personal history of other malignant neoplasm of bronchus and lung
CPT/HCPCS: 70450; 70544; 70551; 71045; 80048; 80053; 81001; 82607; 83921; 84425; 84443; 84484; 85025; 85610; 85652; 85730; 86140; 93005; 93880; 95819; 96361; 96372; 96374; 96376; 97110; 97116; 97162; 99285; G0378; G8987; G8988; J1642; J1650; J2405; J7030